=== PATIENT | male | born 1950 | race Caucasian/White ===

== ENCOUNTER 2018-02-18 12:55 | Emergency (ER) | payer MEDICARE, OTHER ==
[2018-02-18] MEDS ORDERED: ASPIRIN 81 MG TABLET, CHEWABLE PO ONE (13:43)
[2018-02-18] MEDS ORDERED: NORMAL SALINE 1000 ML 1,000 ML IV PRN (13:44)
--- NOTE | 2018-02-18 13:45 | ER Document Report ---
ED Medical Screen (RME) - General Chief Complaint: Weakness Stated Complaint: DIZZY Time Seen by Provider: 02/18/18 13:37 Notes: 68 years old male with a history of stroke presents today because of feeling lethargic for the last 2-3 days last 2 hours he was sitting in a place and not doing anything chest not feeling good. Denied any headache focal weakness other than the old stroke. Denies any chest pain shortness of breath cough. Denies any other constitutional symptoms. I have greeted and performed a rapid initial assessment of this patient. A comprehensive ED assessment and evaluation of the patient, analysis of test results and completion of the medical decision making process will be conducted by additional ED providers. PHYSICAL EXAMINATION: GENERAL: Well-appearing, well-nourished and in no acute distress. HEAD: Atraumatic, normocephalic. EYES: Pupils equal round extraocular movements intact, conjunctiva are normal. ENT: Nares patent NECK: Normal range of motion LUNGS: No respiratory distress Musculoskeletal: Normal range of motion NEUROLOGICAL: Normal speech, normal gait. PSYCH: Normal mood, normal affect. SKIN: Warm, Dry, normal turgor, no rashes or lesions noted. Past Medical History - Social History Chew tobacco use (# tins/day): No Frequency of alcohol use: None Drug Abuse: None - Past Medical History Cardiac Medical History: Reports: Hx Hypertension Pulmonary Medical History: Reports: Hx COPD Renal/ Medical History: Denies: Hx Peritoneal Dialysis Physical Exam - Vital signs Vitals: Temp Pulse Resp BP Pulse Ox 97.9 F 58 L 18 135/61 H 95 02/18/18 13:04 02/18/18 13:04 02/18/18 13:04 02/18/18 13:04 02/18/18 13:04 Course - Vital Signs Vital signs: Temp Pulse Resp BP Pulse Ox 97.9 F 58 L 18 135/61 H 95 02/18/18 13:04 02/18/18 13:04 02/18/18 13:04 02/18/18 13:04 02/18/18 13:04
[2018-02-18 14:38] LABS: ABSOLUTE EOSINOPHILS # (AUTO) 0.5 10^3/uL (0.0-0.6); ABSOLUTE LYMPHOCYTES (AUTO) 2.4 10^3/uL (0.5-4.7); ABSOLUTE MONOCYTES (AUTO) 0.6 10^3/uL (0.1-1.4); ABSOLUTE NEUT (AUTO) 4.9 10^3/uL (1.7-8.2); BASOPHILS % (AUTO) 0.4 % (0-2); EOSINOPHILS % (AUTO) 6.5 % (0-6); HEMATOCRIT 51.8 % (37.9-51.0); HEMOGLOBIN 17.5 g/dL (13.5-17.0); LYMPHOCYTES % (AUTO) 28.4 % (13-45); MEAN CORPUSCULAR HEMOGLOBIN 29.3 pg (27.0-33.4); MEAN CORPUSCULAR HGB CONC 33.8 g/dL (32.0-36.0); MEAN CORPUSCULAR VOLUME 87 fl (80-97); MONOCYTES % (AUTO) 6.6 % (3-13); PLATELET COUNT 238 10^3/uL (150-450); RED BLOOD COUNT 5.97 10^6/uL (4.35-5.55); RED CELL DISTRIBUTION WIDTH 13.4 % (11.5-14.0); SEGMENTED NEUTROPHILS % (AUTO) 58.1 % (42-78); TOTAL CELLS COUNTED % (AUTO) 100 %; WHITE BLOOD COUNT 8.4 10^3/uL (4.0-10.5)
--- NOTE | 2018-02-18 14:51 | RADIOLOGY REPORT (SQ) ---
EXAM DESCRIPTION: CHEST SINGLE VIEW COMPLETED DATE/TIME: 02/18/2018 2:38 pm REASON FOR STUDY: Shortness of breath COMPARISON: None. EXAM PARAMETERS: NUMBER OF VIEWS: One view. TECHNIQUE: Single frontal radiographic view of the chest acquired. RADIATION DOSE: NA LIMITATIONS: None. FINDINGS: LUNGS AND PLEURA: No opacities, masses or pneumothorax. No pleural effusion. MEDIASTINUM AND HILAR STRUCTURES: No masses. Contour normal. HEART AND VASCULAR STRUCTURES: Heart normal in size. Normal vasculature. BONES: No acute findings. HARDWARE: None in the chest. OTHER: No other significant finding. IMPRESSION: NO ACUTE RADIOGRAPHIC FINDING IN THE CHEST. TECHNICAL DOCUMENTATION: JOB ID: [id number] [email or web address]- All Rights Reserved Reading location - IP/workstation name: [email or web address]
[2018-02-18 15:01] LABS: ALANINE AMINOTRANSFERASE 38 U/L (21-72); ALBUMIN 4.5 g/dL (3.5-5.0); ALKALINE PHOSPHATASE 184 U/L (38-126); ANION GAP 14 (5-19); ASPARTATE AMINO TRANSFERASE 44 U/L (17-59); BILIRUBIN,DIRECT 0.4 mg/dL (0.0-0.4); BILIRUBIN,TOTAL 0.8 mg/dL (0.2-1.3); BLOOD UREA NITROGEN 20 mg/dL (7-20); CALCIUM 9.5 mg/dL (8.4-10.2); CARBON DIOXIDE 31 mmol/L (22-30); CHLORIDE 103 mmol/L (98-107); CREATINE KINASE 64 U/L (55-170); GLUCOSE 94 mg/dL (75-110)
[2018-02-18] MEDS ORDERED: IPRATROPIUM/ALBUTEROL 0.5-2.5 MG/3 ML AMPUL NEB ONE (15:02)
[2018-02-18 15:18] LABS: CREATINE KINASE MB 1.16 ng/mL (<4.55); TROPONIN I 0.014 ng/mL
[2018-02-18 15:28] LABS: INTERNATIONAL RATION (INR) 0.98; PROTHROMBIN TIME 13.5 SEC (11.4-15.4)
[2018-02-18 15:29] LABS: PARTIAL THROMBOPLASTIN TIME 30.6 SEC (23.5-35.8)
--- NOTE | 2018-02-18 15:31 | ER Document Report ---
ED General - General Chief Complaint: Weakness Stated Complaint: DIZZY Time Seen by Provider: 02/18/18 13:37 Mode of Arrival: Ambulatory Information source: Patient, Relative, [facility] Records Notes: 68-year-old male with hypertension, COPD, previous CVA (with left sided resiual weakness) presents with complaint of fatigue. Per the sister and who are at the bedside they state the patient has been sleeping for the last 2 days. Patient states that he feels "lethargic". He denies headache, visual changes, nausea, vomiting, lightheadedness, weakness, chest pain, shortness of breath, abdominal pain, back pain, dysuria, hematuria. Family reports that the patient has not been eating and drinking normally. He has not been taking his medications. Patient has no physical complaints at this time. He states he believes he does not "feel good in my head". He denies confusion, slurred speech, recent falls, changes in medication, recent hospitalizations. - HPI Onset: Other Quality of pain: No pain Severity: None Associated symptoms: Other - Fatigue Exacerbated by: Denies Relieved by: Denies Similar symptoms previously: No Recently seen / treated by doctor: No - Related Data Allergies/Adverse Reactions: No Known Allergies Allergy (Unverified 02/18/18 15:11) Past Medical History - General Information source: Patient, [facility] Records - Social History Smoking Status: Current Every Day Smoker Chew tobacco use (# tins/day): No Frequency of alcohol use: None Drug Abuse: None Lives with: Spouse/Significant other Family History: Reviewed & Not Pertinent Patient has suicidal ideation: No Patient has homicidal ideation: No - Past Medical History Cardiac Medical History: Reports: Hx Hypertension Pulmonary Medical History: Reports: Hx COPD Renal/ Medical History: Denies: Hx Peritoneal Dialysis Review of Systems - Review of Systems Notes: REVIEW OF SYSTEMS: CONSTITUTIONAL : Denies fever, chills, or sweats. Denies recent illness. Denies weight loss, recent hospitalizations. EENT: Denies visual changes, eye pain. Denies nasal or sinus congestion or discharge. Denies sore throat, oral lesions, difficulty swallowing. CARDIOVASCULAR: Denies chest pain. Denies palpitations or racing or irregular heart beat. Denies lower extremity edema. RESPIRATORY: Denies cough, cold, or chest congestion. Denies shortness of breath, difficulty breathing, or wheezing. GASTROINTESTINAL: Denies abdominal pain or distention. Denies nausea, vomiting , or diarrhea. Denies blood in vomitus, stools, or per rectum. Denies black, tarry stools. Denies constipation. GENITOURINARY: Denies difficulty urinating, painful urination, burning, frequency, blood in urine, or vaginal discharge. MUSCULOSKELETAL: Denies back or neck pain or stiffness. Denies joint pain or swelling. SKIN: Denies rash, lesions or sores. HEMATOLOGIC : Denies easy bruising or bleeding. LYMPHATIC: Denies swollen, enlarged glands. NEUROLOGICAL: Denies confusion or altered mental status. Denies passing out or loss of consciousness. Denies dizziness or lightheadedness. Denies headache. Denies weakness or paralysis or loss of use of either side. Denies problems with gait or speech. Denies sensory loss, numbness, or tingling. Denies seizures. PSYCHIATRIC: Denies anxiety or stress. Denies depression, suicidal ideation, or homicidal ideation. Physical Exam - Vital signs Vitals: Temp Pulse Resp BP Pulse Ox 97.9 F 58 L 18 135/61 H 95 02/18/18 13:04 02/18/18 13:04 02/18/18 13:04 02/18/18 13:04 02/18/18 13:04 Interpretation: Hypertensive, Bradycardic. No: Hypoxic - Notes Notes: PHYSICAL EXAMINATION: GENERAL: Well-appearing, well-nourished and in no acute distress. HEAD: Atraumatic, normocephalic. EYES: Pupils equal round and reactive to light, extraocular movements intact, sclera anicteric, conjunctiva are normal. ENT: Nares patent, oropharynx clear without exudates. Dry mucous membranes. NECK: Normal range of motion, supple without lymphadenopathy LUNGS: Breath sounds clear to auscultation bilaterally and equal. No wheezes rales or rhonchi. HEART: Regular rate and rhythm without murmurs ABDOMEN: Soft, nontender, nondistended abdomen. No guarding, no rebound. No masses appreciated. Musculoskeletal: Normal range of motion, no pitting or edema. No cyanosis. NEUROLOGICAL: Cranial nerves grossly intact. Normal speech, normal gait. Normal sensory, motor exams. 3/5 left sided coastal tug mate strength, dorsiflexion. PSYCH: Normal mood, normal affect. SKIN: Warm, Dry, normal turgor, no rashes or lesions noted. Course - Re-evaluation Re-evalutation: Laboratory 02/18/18 02/18/18 02/18/18 14:13 14:13 14:13 WBC 8.4 RBC 5.97 H Hgb 17.5 H Hct 51.8 H MCV 87 MCH 29.3 MCHC 33.8 RDW 13.4 Plt Count 238 Seg Neutrophils % 58.1 Lymphocytes % 28.4 Monocytes % 6.6 Eosinophils % 6.5 H Basophils % 0.4 Absolute Neutrophils 4.9 Absolute Lymphocytes 2.4 Absolute Monocytes 0.6 Absolute Eosinophils 0.5 Absolute Basophils 0.0 PT INR APTT VBG pH VBG pCO2 VBG HCO3 VBG Base Excess Sodium 148.0 H Potassium 4.0 Chloride 103 Carbon Dioxide 31 H Anion Gap 14 BUN 20 Creatinine 1.24 Est GFR ( Amer) > 60 Est GFR (Non-Af Amer) 58 L Glucose 94 Calcium 9.5 Total Bilirubin 0.8 Direct Bilirubin 0.4 Neonat Total Bilirubin Not Reportable Neonat Direct Bilirubin Not Reportable Neonat Indirect Bili Not Reportable AST 44 ALT 38 Alkaline Phosphatase 184 H Creatine Kinase 64 CK-MB (CK-2) 1.16 Troponin I 0.014 Total Protein 8.0 Albumin 4.5 Urine Color Urine Appearance Urine pH Ur Specific [place] Urine Protein Urine Glucose (UA) Urine Ketones Urine Blood Urine Nitrite Urine Bilirubin Urine Urobilinogen Ur Leukocyte Esterase Urine WBC (Auto) Urine RBC (Auto) Squamous Epi Cells Auto Urine Mucus (Auto) Urine Ascorbic Acid 02/18/18 02/18/18 02/18/18 14:13 17:51 19:34 WBC RBC Hgb Hct MCV MCH MCHC RDW Plt Count Seg Neutrophils % Lymphocytes % Monocytes % Eosinophils % Basophils % Absolute Neutrophils Absolute Lymphocytes Absolute Monocytes Absolute Eosinophils Absolute Basophils PT 13.5 INR 0.98 APTT 30.6 VBG pH 7.41 VBG pCO2 44.5 VBG HCO3 27.4 VBG Base Excess 2.2 Sodium Potassium Chloride Carbon Dioxide Anion Gap BUN Creatinine Est GFR ( Amer) Est GFR (Non-Af Amer) Glucose Calcium Total Bilirubin Direct Bilirubin Neonat Total Bilirubin Neonat Direct Bilirubin Neonat Indirect Bili AST ALT Alkaline Phosphatase Creatine Kinase CK-MB (CK-2) Troponin I 0.018 Total Protein Albumin Urine Color Urine Appearance Urine pH Ur Specific [place] Urine Protein Urine Glucose (UA) Urine Ketones Urine Blood Urine Nitrite Urine Bilirubin Urine Urobilinogen Ur Leukocyte Esterase Urine WBC (Auto) Urine RBC (Auto) Squamous Epi Cells Auto Urine Mucus (Auto) Urine Ascorbic Acid 02/18/18 20:46 WBC RBC Hgb Hct MCV MCH MCHC RDW Plt Count Seg Neutrophils % Lymphocytes % Monocytes % Eosinophils % Basophils % Absolute Neutrophils Absolute Lymphocytes Absolute Monocytes Absolute Eosinophils Absolute Basophils PT INR APTT VBG pH VBG pCO2 VBG HCO3 VBG Base Excess Sodium Potassium Chloride Carbon Dioxide Anion Gap BUN Creatinine Est GFR ( Amer) Est GFR (Non-Af Amer) Glucose Calcium Total Bilirubin Direct Bilirubin Neonat Total Bilirubin Neonat Direct Bilirubin Neonat Indirect Bili AST ALT Alkaline Phosphatase Creatine Kinase CK-MB (CK-2) Troponin I Total Protein Albumin Urine Color YELLOW Urine Appearance CLEAR Urine pH 6.0 Ur Specific [place] 1.015 Urine Protein NEGATIVE Urine Glucose (UA) NEGATIVE Urine Ketones NEGATIVE Urine Blood SMALL H Urine Nitrite NEGATIVE Urine Bilirubin NEGATIVE Urine Urobilinogen 4.0 H Ur Leukocyte Esterase NEGATIVE Urine WBC (Auto) 0 Urine RBC (Auto) 2 Squamous Epi Cells Auto <1 Urine Mucus (Auto) RARE Urine Ascorbic Acid NEGATIVE Chest X-Ray 02/18/18 13:43 IMPRESSION: NO ACUTE RADIOGRAPHIC FINDING IN THE CHEST. Head CT 02/18/18 15:27 IMPRESSION: MILD CHRONIC CHANGES OF ATROPHY AND MICROVASCULAR ISCHEMIA. 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 NO ACUTE PROCESS. EVIDENCE OF ACUTE STROKE: NO. 68-year-old male with hypertension, COPD, previous CVA (with left sided resiual weakness) presents with complaint of fatigue. Per the sister and who are at the bedside they state the patient has been sleeping for the last 2 days. Patient states that he feels "lethargic". He denies headache, visual changes, nausea, vomiting, lightheadedness, weakness, chest pain, shortness of breath, abdominal pain, back pain, dysuria, hematuria. Family reports that the patient has not been eating and drinking normally. He has not been taking his medications. Patient has no physical complaints at this time. He states he believes he does not "feel good in my head". He denies confusion, slurred speech, recent falls, changes in medication, recent hospitalizations. Patient was seen by myself upon arrival. Vital signs were reviewed. Patient is afebrile , normotensive and not hypoxic. Patient's heart rate is 58. Patient does not appear toxic he does appear mildly dehydrated. They are in no acute distress. Previous medical records and nursing notes reviewed. Significant findings include an exam that is significant for left sided arm and leg weakness which patient reports to be from his previous CVA and denies worsening of weakness. Patient also appears mildly dehydrated with dry mucous membranes and tenting skin. CBC is without leukocytosis or anemia. CMP is significant for elevated sodium likely secondary to dehydration. Cardiac enzymes were within normal limits 2. Urinalysis is without evidence of infection. Chest x-ray showed no acute process. CT of the head does show an old MCA infarct but no acute process. 02/18/18 18:35 On reevaluation patient is still symptom-free. I did review his test results and imaging results with him. We are still awaiting a urine. is at the bedside and states that he looks much better after the fluids. 02/18/18 21:41 Patient reevaluated and continues to be symptom free. He has no complaints. Family at the bedside states that he appears much better after fluids. 02/18/18 21:41 Patient provided the opportunity to ask questions, and express concerns. Discharge instructions discussed. Patient is agreeable with discharge home. Return indications explained and discussed with the patient who displays understanding. Patient encouraged to return to the emergency department immediately with any concerns. 02/19/18 01:35 02/19/18 01:35 - Vital Signs Vital signs: Temp Pulse Resp BP Pulse Ox 98.5 F 58 L 16 141/68 H 96 02/18/18 21:45 02/18/18 13:04 02/18/18 21:31 02/18/18 21:31 02/18/18 21:31 - Laboratory Result Diagrams: 02/18/18 14:13 02/18/18 14:13 Laboratory results interpreted by me: 02/18/18 02/18/18 02/18/18 14:13 14:13 20:46 RBC 5.97 H Hgb 17.5 H Hct 51.8 H Eosinophils % 6.5 H Sodium 148.0 H Carbon Dioxide 31 H Est GFR (Non-Af Amer) 58 L Alkaline Phosphatase 184 H Urine Blood SMALL H Urine Urobilinogen 4.0 H - Diagnostic Test Radiology reviewed: Image reviewed, Reports reviewed - EKG Interpretation by Me EKG shows normal: abnormal: Sinus rhythm Rate: Bradycardia Rhythm: NSR When compared to previous EKG there are: Previous EKG unavailable Discharge - Discharge Clinical Impression: Dehydration Fatigue Qualifiers: Fatigue type: unspecified Qualified Code(s): R53.83 - Other fatigue Disposition: HOME, SELF-CARE Instructions: Dehydration ([facility]), Fatigue ([facility]) Additional Instructions: Follow up with your physician tomorrow for further care or return to the ED IMMEDIATELY if symptoms worsen or new concerns occur. If you cannot afford to follow up with your primary care physician a list of low cost clinics have been provided at the end of your discharge papers as well. Forms: Elevated Blood Pressure, Smoking Cessation Education
[2018-02-18] MEDS ORDERED: NORMAL SALINE 1000 ML 1,000 ML IV ONE (15:41)
--- NOTE | 2018-02-18 16:24 | RADIOLOGY REPORT (SQ) ---
EXAM DESCRIPTION: CT HEAD WITHOUT COMPLETED DATE/TIME: 02/18/2018 4:14 pm REASON FOR STUDY: confused COMPARISON: None. TECHNIQUE: Axial images acquired through the brain without intravenous contrast. Images reviewed wi th bone, brain and subdural windows. Additional sagittal and coronal reconstructions were generated. Images stored on PACS. All CT scanners at this facility use dose modulation, iterative reconstruction, and/or weight based d osing when appropriate to reduce radiation dose to as low as reasonably achievable (ALARA). [facility]: Dose Right [facility]: CareDose [facility]: Dose Right [facility]: Teradose 4D [facility]: Smart [employer] RADIATION DOSE: CT Rad equipment meets quality standard of care and radiation dose reduction techniq ues were employed. CTDIvol: 53.2 mGy. DLP: 991 mGy-cm. mGy. LIMITATIONS: None. FINDINGS: VENTRICLES: Prominent. CEREBRUM: No masses. No hemorrhage. No midline shift. Areas of low density in the white matter mos t likely due to chronic micro-vascular ischemic change. Old right middle cerebral artery infarct. N o evidence for acute infarction. CEREBELLUM: No masses. No hemorrhage. No alteration of density. No evidence for acute infarction. EXTRAAXIAL SPACES: Mild age-related involutional change. No fluid collections. No masses. ORBITS AND GLOBE: No intra- or extraconal masses. Normal contour of globe without masses. CALVARIUM: No fracture. PARANASAL SINUSES: No fluid or mucosal thickening. SOFT TISSUES: No mass or hematoma. OTHER: No other significant finding. IMPRESSION: MILD CHRONIC CHANGES OF ATROPHY AND MICROVASCULAR ISCHEMIA. OLD RIGHT MIDDLE CEREBRAL A RTERY INFARCT. NO ACUTE PROCESS. EVIDENCE OF ACUTE STROKE: NO. TECHNICAL DOCUMENTATION: JOB ID: [id number] Quality ID # [id number]: Final reports with documentation of one or more dose reduction techniques (e.g., Au tomated exposure control, adjustment of the mA and/or kV according to patient size, use of iterative reconstruction technique) 2010 [employer]- All Rights Reserved Reading location - IP/workstation name: [email or web address]
[2018-02-18 18:03] LABS: VENOUS BLOOD BASE EXCESS 2.2 mmol/L; VENOUS BLOOD HCO3 27.4 mmol/L (20-32); VENOUS BLOOD PCO2 44.5 mmHg (35-63); VENOUS BLOOD PH 7.41 (7.30-7.42)
[2018-02-18] MEDS ORDERED: NORMAL SALINE 500 ML IV ONE (18:36)
[2018-02-18 21:20] LABS: APPEARANCE,URINE CLEAR; BILIRUBIN,URINE NEGATIVE (NEGATIVE); COLOR,URINE YELLOW; GLUCOSE, URINE NEGATIVE (NEGATIVE); KETONES,URINE NEGATIVE (NEGATIVE); LEUKOCYTE ESTERASE,URINE NEGATIVE (NEGATIVE); NITRITE,URINE NEGATIVE (NEGATIVE); PROTEIN,URINE NEGATIVE (NEGATIVE); URINE SPECIFIC GRAVITY 1.015
[2018-02-18 21:51] VITALS: BP 141/68
--- NOTE | 2018-02-18 23:39 | EKG REPORT ---
SEVERITY:- ABNORMAL ECG - SINUS BRADYCARDIA : Confirmed by: Clyde Murray 18-Feb-2018 23:38:46
== END 2018-02-18 21:45 | disposition home or self-care (01) ==
LOC: ER 12:55
DX: E86.0 Dehydration (principal); R53.83 Other fatigue; R00.1 Bradycardia, unspecified; I10 Essential (primary) hypertension; J44.9 Chronic obstructive pulmonary disease, unspecified; I69.354 Hemiplegia and hemiparesis following cerebral infarction affecting left non-dominant side; F17.200 Nicotine dependence, unspecified, uncomplicated; Z91.14 Patient's other noncompliance with medication regimen
CPT/HCPCS: 93005; 94640; 99285; 96360; 96361; 51701; 36415; 82553; 82550; 85025; 85610; 85730; 80053; 81001; 84484; 82803; 71045; 70450; 93010; A9270 ×2; J7030; J7040; J7620

== ENCOUNTER 2019-02-24 15:19 | Emergency (ER) | payer OTHER, MEDICARE ==
--- NOTE | 2019-02-24 16:15 | ER Document Report ---
ED Medical Screen (RME) - General Chief Complaint: Pedal Edema Stated Complaint: FEET SWELLING Time Seen by Provider: 02/24/19 16:10 Mode of Arrival: Wheelchair Information source: Patient Notes: Patient presents to the emergency department sent over from his physician's office for possible heart failure. Reports chest pain difficulty breathing for the past week. Reports peripheral edema. Patient also reports history of COPD. No complaints of fever vomiting diarrhea. Patient is a smoker. I have greeted and performed a rapid initial assessment of this patient. A comprehensive ED assessment and evaluation of the patient, analysis of test results and completion of the medical decision making process will be conducted by additional ED providers. Dictation of this chart was performed using voice recognition software; therefore, there may be some unintended grammatical errors. - Related Data Allergies/Adverse Reactions: No Known Allergies Allergy (Verified 02/24/19 15:52) Past Medical History - Past Medical History Cardiac Medical History: Reports: Hx Hypertension Pulmonary Medical History: Reports: Hx COPD Renal/ Medical History: Denies: Hx Peritoneal Dialysis Physical Exam - Vital signs Vitals: Temp Pulse Resp BP Pulse Ox 98.2 F 97 28 H 172/76 H 90 L 02/24/19 15:27 02/24/19 15:27 02/24/19 15:27 02/24/19 15:27 02/24/19 15:27 Course - Vital Signs Vital signs: Temp Pulse Resp BP Pulse Ox 98.2 F 97 28 H 172/76 H 90 L 02/24/19 15:27 02/24/19 15:27 02/24/19 15:27 02/24/19 15:27 02/24/19 15:27
--- NOTE | 2019-02-24 16:51 | RADIOLOGY REPORT (SQ) ---
EXAM DESCRIPTION: CHEST 2 VIEWS COMPLETED DATE/TIME: 02/24/2019 4:38 pm REASON FOR STUDY: SOB, CP COMPARISON: 02/18/2018. EXAM PARAMETERS: NUMBER OF VIEWS: two views TECHNIQUE: Digital Frontal and Lateral radiographic views of the chest acquired. RADIATION DOSE: NA LIMITATIONS: none FINDINGS: LUNGS AND PLEURA: No opacities, masses or pneumothorax. No pleural effusion. MEDIASTINUM AND HILAR STRUCTURES: No masses or contour abnormalities. HEART AND VASCULAR STRUCTURES: Heart normal size. No evidence for failure. BONES: No acute findings. Degenerative changes in the spine. HARDWARE: None in the chest. OTHER: No other significant finding. IMPRESSION: NO ACUTE RADIOGRAPHIC FINDING IN THE CHEST. TECHNICAL DOCUMENTATION: JOB ID: [id number] [email or web address]- All Rights Reserved Reading location - IP/workstation name: [email or web address]
--- NOTE | 2019-02-24 16:54 | ER Document Report ---
ED General - General Chief Complaint: Pedal Edema Stated Complaint: FEET SWELLING Time Seen by Provider: 02/24/19 16:10 Primary Care Provider: EVERTON RUBIN MD [ACTIVE STAFF] - Follow up in 3-5 days (or your primary care. ) Mode of Arrival: Wheelchair Notes: Patient is a 69-year-old male with history of COPD that presents to the emergency department for chief complaint of shortness of breath and leg swelling. Patient states that he is a more short of breath over the past few days, his primary care advised that he come to the emergency department today because they are worried he may be having heart failure because he has had some leg swelling. He states he has not been as compliant as he should be with his breathing treatments at home. He reports that the leg swelling has been more noticable over the past several weeks. Shortness of breath seems to be worse with exertion, but denies orthopnea or PND. Denies any associated chest pain, nausea, vomiting, diarrhea, or abdominal pain. He has had a productive cough with yellow sputum as well. He does not wear home oxygen. Past Medical History: COPD, HTN Past Surgical History: skin cyst removal Social History: Admits to smoking cigarettes, denies ETOH or drug use. Family History: Reviewed and noncontributory for presenting illness Allergies: Reviewed, see documented allergy list. REVIEW OF SYSTEMS: Other than noted above, the 12 point review of systems was reviewed with the patient and were negative, all pertinent findings are included in the HPI. PHYSICAL EXAMINATION: Vital signs reviewed, nursing noted reviewed. GENERAL: Elderly male, no acute distress at this time. HEAD: Atraumatic, normocephalic. EYES: Eyes appear normal, extraocular movements intact, sclera anicteric, conjunctiva are normal. ENT: nares patent, oropharynx clear without exudates. Moist mucous membranes. NECK: Normal range of motion, supple without lymphadenopathy LUNGS: Bilateral expiratory wheezing noted, diminished lung sounds overall, no acute respiratory distress. HEART: Regular rate and rhythm without murmurs ABDOMEN: Soft, nontender, normoactive bowel sounds. No rebound, guarding, or rigidity. No masses appreciated. EXTREMITIES: Nontender, good range of motion, bilateral 1-2+ pitting edema to the ankles, no erythema. NEUROLOGICAL: No focal neurological deficits. Moves all extremities spontaneously Motor and sensory grossly intact on exam. PSYCH: Normal mood, normal affect. SKIN: Warm, Dry, normal turgor, no rashes or lesions noted on exposed skin - Related Data Allergies/Adverse Reactions: No Known Allergies Allergy (Verified 02/24/19 15:52) Past Medical History - General Information source: Patient - Social History Smoking Status: Current Every Day Smoker Family History: Reviewed & Not Pertinent Patient has suicidal ideation: No Patient has homicidal ideation: No - Past Medical History Cardiac Medical History: Reports: Hx Hypertension Pulmonary Medical History: Reports: Hx COPD Renal/ Medical History: Denies: Hx Peritoneal Dialysis Physical Exam - Vital signs Vitals: Temp Pulse Resp BP Pulse Ox 98.2 F 97 28 H 172/76 H 90 L 02/24/19 15:27 02/24/19 15:27 02/24/19 15:27 02/24/19 15:27 02/24/19 15:27 Course - Re-evaluation Re-evalutation: Patient seen and examined vital signs reviewed. Laboratory data and/or imaging were ordered as appropriate for the patient's presenting symptoms and complaint, with consideration of any critical or life threatening conditions that may be associated with their obtained history and exam as noted above. Patient was treated with duo neb breathing treatments, and IV solu medrol Results were reviewed when available and demonstrated negative chest xray, and bloodwork was essentially unremarkable. The patient was re-evaluated and was improved and wheezing nearly resolved, no acute respiratory distress, and not hypoxic on room air, was able to produce yellow thick sputum. Evaluation was most consistent with acute exacerbation of copd, will discharge home on mucinex, prednisone, and azithromycin for productive cough. Results were discussed with the patient at this point, after careful consideration I feel that that patient can be discharged from the emergency department, the patient was educated treatments and reasons to return to the emergency department based on their presumed diagnosis as noted above, they were advised to followup with a primary care physician in 2-3 days. Patient was agreeable to plan of care. *Note is created using voice recognition software and may contain spelling, syntax or grammatical errors. Laboratory 02/24/19 02/24/19 02/24/19 16:40 16:40 16:40 WBC 8.1 RBC 5.11 Hgb 15.2 Hct 44.1 MCV 86 MCH 29.7 MCHC 34.5 RDW 13.5 Plt Count 186 Seg Neutrophils % 67.2 Lymphocytes % 18.6 Monocytes % 10.5 Eosinophils % 3.0 Basophils % 0.7 Absolute Neutrophils 5.5 Absolute Lymphocytes 1.5 Absolute Monocytes 0.9 Absolute Eosinophils 0.2 Absolute Basophils 0.1 Sodium 143.4 Potassium 3.9 Chloride 105 Carbon Dioxide 29 Anion Gap 9 BUN 18 Creatinine 1.33 H Est GFR ( Amer) > 60 Est GFR (Non-Af Amer) 53 L Glucose 101 Calcium 8.9 Total Bilirubin 0.6 Direct Bilirubin 0.3 Neonat Total Bilirubin Not Reportable Neonat Direct Bilirubin Not Reportable Neonat Indirect Bili Not Reportable AST 26 ALT 24 Alkaline Phosphatase 109 Creatine Kinase 316 H Troponin I 0.017 NT-Pro-B Natriuret Pep 495 Total Protein 6.9 Albumin 4.1 Urine Color Urine Appearance Urine pH Ur Specific Desha Urine Protein Urine Glucose (UA) Urine Ketones Urine Blood Urine Nitrite Urine Bilirubin Urine Urobilinogen Ur Leukocyte Esterase Urine WBC (Auto) Urine RBC (Auto) Squamous Epi Cells Auto Urine Mucus (Auto) Urine Ascorbic Acid 02/24/19 19:08 WBC RBC Hgb Hct MCV MCH MCHC RDW Plt Count Seg Neutrophils % Lymphocytes % Monocytes % Eosinophils % Basophils % Absolute Neutrophils Absolute Lymphocytes Absolute Monocytes Absolute Eosinophils Absolute Basophils Sodium Potassium Chloride Carbon Dioxide Anion Gap BUN Creatinine Est GFR ( Amer) Est GFR (Non-Af Amer) Glucose Calcium Total Bilirubin Direct Bilirubin Neonat Total Bilirubin Neonat Direct Bilirubin Neonat Indirect Bili AST ALT Alkaline Phosphatase Creatine Kinase Troponin I NT-Pro-B Natriuret Pep Total Protein Albumin Urine Color YELLOW Urine Appearance CLEAR Urine pH 5.0 Ur Specific Desha 1.019 Urine Protein NEGATIVE Urine Glucose (UA) NEGATIVE Urine Ketones NEGATIVE Urine Blood SMALL H Urine Nitrite NEGATIVE Urine Bilirubin NEGATIVE Urine Urobilinogen 2.0 H Ur Leukocyte Esterase NEGATIVE Urine WBC (Auto) 1 Urine RBC (Auto) 4 Squamous Epi Cells Auto <1 Urine Mucus (Auto) RARE Urine Ascorbic Acid NEGATIVE Chest X-Ray 02/24/19 16:13 IMPRESSION: NO ACUTE RADIOGRAPHIC FINDING IN THE CHEST. - Vital Signs Vital signs: Temp Pulse Resp BP Pulse Ox 98.2 F 97 19 161/79 H 92 02/24/19 15:27 02/24/19 15:27 02/24/19 20:01 02/24/19 20:01 02/24/19 20:01 - Laboratory Result Diagrams: 02/24/19 16:40 02/24/19 16:40 Laboratory results interpreted by me: 02/24/19 02/24/19 16:40 19:08 Creatinine 1.33 H Est GFR (Non-Af Amer) 53 L Creatine Kinase 316 H Urine Blood SMALL H Urine Urobilinogen 2.0 H - EKG Interpretation by Me Additional EKG results interpreted by me: EKG demonstrates sinus rhythm with a ventricular rate of 79 bpm, normal axis, normal intervals, no evidence of acute ischemia in this EKG, compared to prior EKG from 02/18/2018, without significant change. Discharge - Discharge Clinical Impression: Acute exacerbation of chronic obstructive pulmonary disease (COPD), Productive cough Condition: Stable Disposition: HOME, SELF-CARE Instructions: Chronic Obstructive Lung Disease ([facility]) Additional Instructions: Please use your albuterol inhaler, 2 puffs 4 times daily for the next 5 days, continue using your other inhaler as well, call for an appointment to follow-up with your primary care physician, and take all medications as directed and complete the entire course of steroids. Prescriptions: RX: Azithromycin [Zithromax 250 mg Tablet] 250 mg PO ASDIR #6 tablet Guaifenesin [Mucinex] 1,200 mg PO BID #30 tab.er.12h RX: Prednisone [Deltasone 20 mg Tablet] 3 tab PO DAILY 5 Days #15 tablet Referrals: EVERTON RUBIN MD [ACTIVE STAFF] - Follow up in 3-5 days (or your primary care. )
[2019-02-24 17:05] LABS: ABSOLUTE BASOPHILS # (AUTO) 0.1 10^3/uL (0.0-0.2); ABSOLUTE EOSINOPHILS # (AUTO) 0.2 10^3/uL (0.0-0.6); ABSOLUTE LYMPHOCYTES (AUTO) 1.5 10^3/uL (0.5-4.7); ABSOLUTE MONOCYTES (AUTO) 0.9 10^3/uL (0.1-1.4); ABSOLUTE NEUT (AUTO) 5.5 10^3/uL (1.7-8.2); BASOPHILS % (AUTO) 0.7 % (0-2); HEMATOCRIT 44.1 % (37.9-51.0); HEMOGLOBIN 15.2 g/dL (13.5-17.0); LYMPHOCYTES % (AUTO) 18.6 % (13-45); MEAN CORPUSCULAR HEMOGLOBIN 29.7 pg (27.0-33.4); MEAN CORPUSCULAR HGB CONC 34.5 g/dL (32.0-36.0); MEAN CORPUSCULAR VOLUME 86 fl (80-97); MONOCYTES % (AUTO) 10.5 % (3-13); PLATELET COUNT 186 10^3/uL (150-450); RED BLOOD COUNT 5.11 10^6/uL (4.35-5.55); RED CELL DISTRIBUTION WIDTH 13.5 % (11.5-14.0); SEGMENTED NEUTROPHILS % (AUTO) 67.2 % (42-78); TOTAL CELLS COUNTED % (AUTO) 100 %; WHITE BLOOD COUNT 8.1 10^3/uL (4.0-10.5)
[2019-02-24 17:18] LABS: ALANINE AMINOTRANSFERASE 24 U/L (21-72); ALBUMIN 4.1 g/dL (3.5-5.0); ALKALINE PHOSPHATASE 109 U/L (38-126); ANION GAP 9 (5-19); ASPARTATE AMINO TRANSFERASE 26 U/L (17-59); BILIRUBIN,DIRECT 0.3 mg/dL (0.0-0.4); BILIRUBIN,TOTAL 0.6 mg/dL (0.2-1.3); BLOOD UREA NITROGEN 18 mg/dL (7-20); CALCIUM 8.9 mg/dL (8.4-10.2); CARBON DIOXIDE 29 mmol/L (22-30); CHLORIDE 105 mmol/L (98-107); CREATINE KINASE 316 U/L (55-170); GLUCOSE 101 mg/dL (75-110); POTASSIUM 3.9 mmol/L (3.6-5.0); SODIUM 143.4 mmol/L (137-145); TOTAL PROTEIN 6.9 g/dL (6.3-8.2)
[2019-02-24 17:31] LABS: TROPONIN I 0.017 ng/mL
[2019-02-24] MEDS ORDERED: METHYLPREDNISOLONE INJ 125 MG/2 ML SDV IV ONE (17:39)
[2019-02-24] MEDS ORDERED: FUROSEMIDE INJ/PF 20 MG/2 ML SDV IV ONE (17:39)
[2019-02-24] MEDS ORDERED: IPRATROPIUM/ALBUTEROL 0.5-2.5 MG/3 ML AMPUL NEB ONE (17:39)
--- NOTE | 2019-02-24 19:00 | EKG REPORT ---
SEVERITY:- BORDERLINE ECG - SINUS RHYTHM BORDERLINE INFERIOR Q WAVES : Confirmed by: Reinaldo Gant MD 24-Feb-2019 19:00:09
[2019-02-24 19:39] LABS: APPEARANCE,URINE CLEAR; BILIRUBIN,URINE NEGATIVE (NEGATIVE); COLOR,URINE YELLOW; GLUCOSE, URINE NEGATIVE (NEGATIVE); KETONES,URINE NEGATIVE (NEGATIVE); LEUKOCYTE ESTERASE,URINE NEGATIVE (NEGATIVE); NITRITE,URINE NEGATIVE (NEGATIVE); PROTEIN,URINE NEGATIVE (NEGATIVE); URINE SPECIFIC GRAVITY 1.019
[2019-02-24 20:30] VITALS: BP 161/79
== END 2019-02-24 20:53 | disposition home or self-care (01) ==
LOC: ER 15:19
DX: J44.1 Chronic obstructive pulmonary disease with (acute) exacerbation (principal); R60.9 Edema, unspecified; I10 Essential (primary) hypertension; F17.210 Nicotine dependence, cigarettes, uncomplicated
CPT/HCPCS: 93005; 94640; 99284; 96374; 96375; 36415; 82550; 85025; 80053; 81001; 84484; 83880; 71046; 93010; J1940; J2930; J7620

== ENCOUNTER 2020-08-09 18:36 | Emergency (ER) | payer OTHER, MEDICARE ==
--- NOTE | 2020-08-09 19:04 | ER Document Report ---
ED Neuro Symptoms/Deficit - General Chief Complaint: Altered Mental Status Stated Complaint: SYNCOPE [facility] [[facility]] - Follow up as needed Mode of Arrival: Medic Information source: Emergency Med Personnel Notes: 08/09/20 18:49 - ED Nursing Note by MARVA ORTIZ Num: [id number] : 1950 Patient Age: [age] yo Male brought in via EMS to [facility] Found unresponsive with HR in 30-40's, BGL 160, 18 G R wrist PERRL 4 mm PmHx:previous stroke with left sided deficits Paced Geoscience Specialist 5 mg Verdsed Atropine 1 mg Pt on arrival is obtundend Pacer pads placed on pt. Pt placed on monitor. Pt making loud snoring noises. 95% on 2LNC OPA placed in patient with no gag reflex elicited. Pt is 99% on @LNC skin avulsions left forearm 4 cm, 5th metacarpal 2.5 cm, pointer finger 2.5 cm Erythema to left lateral ribs. 1843: EKG completed with mild ST depression in anterior leads. NSR 1844: Labs obtained. Initialized on 08/09/20 18:49 - END OF NOTE MY NOTES 70-year-old male arrives by EMS after he fell at the [employer] this was witnessed by bystanders who saw him fall from standing p osition to floor. He lacerated his left lateral elbow and his metacarpal skin of his pointer finger and fifth finger. EMS arrived and spoke to his sister. His sister was in the bathroom when he collapsed. Patient was combative and responded to EMS with hand slapping. They had to give him 5 of Versed in order to control his actions. Also he went into a a flutter A. fib and then a bradycardia rhythm and finally a normal sinus rhythm. Upon arrival of patient has 97% on 3 L. He has a trumpet and also patient has 126/72 blood pressure. He was noted by EMS to have a left-sided deficit. He has a prior history of CVA several years ago according to his sister. Patient began to talk and respond by 1900 hrs. He is having full neglect of his left side to include his left arm and left leg. He requests the tube out of his mouth and this was done by Caty RN also wounds of his left hand and left lateral elbow were Coban. There also was noted a skin tear avulsion on the right forearm as well. - Related Data Allergies/Adverse Reactions: No Known Allergies Allergy (Verified 02/24/19 15:52) Past Medical History - General Information source: Emergency Med Personnel - Social History Smoking Status: Unknown if Ever Smoked Cigarette use (# per day): No Chew tobacco use (# tins/day): No Smoking Education Provided: No Frequency of alcohol use: None Family History: Reviewed & Not Pertinent Patient has suicidal ideation: No Patient has homicidal ideation: No - Past Medical History Cardiac Medical History: Reports: Hx Hypertension Pulmonary Medical History: Reports: Hx COPD Renal/ Medical History: Denies: Hx Peritoneal Dialysis Review of Systems - Review of Systems Constitutional: See HPI, Weakness EENT: No symptoms reported Cardiovascular: No symptoms reported Respiratory: No symptoms reported Gastrointestinal: No symptoms reported Genitourinary: No symptoms reported Male Genitourinary: No symptoms reported Musculoskeletal: No symptoms reported Skin: See HPI, Other - Skin avulsions lacerations to left lateral elbow as well as to the left dorsal skin of hand pointer finger metacarpal and fifth finger metacarpal head both of the lateral around 2 and half centimeters in diameter and the left lateral elbow has a laceration around 5 cm with skin avulsion Hematologic/Lymphatic: No symptoms reported Neurological/Psychological: No symptoms reported Physical Exam - Vital signs Vitals: Resp Pulse Ox 19 96 08/09/20 18:41 08/09/20 18:41 Interpretation: Normal - General General appearance: Lethargic - Until 1900 when he began to speak and interpret all communication that was given to him by nurse Byrne and myself. - HEENT Head: Normocephalic, Atraumatic Eyes: Normal Pupils: PERRL - Respiratory Respiratory status: No respiratory distress Chest status: Tender - Left lateral rib pain on palpation Breath sounds: Normal Chest palpation: Normal - Cardiovascular Rhythm: Regular Heart sounds: Normal auscultation Murmur: No - Abdominal Inspection: Normal Distension: No distension Bowel sounds: Normal Tenderness: Nontender Organomegaly: No organomegaly - Rectal Prostate: Other - Deferred - Genitourinary Scrotum: Other - Deferred - Back Back: Normal, Nontender - Extremities General upper extremity: Nontender - Patient denies any pain to his left upper extremities. However he has no use motion and complete neglect of his left upper extremity and left lower extremity., Tender, Normal color, Normal temperature General lower extremity: Tender - Nontender lower extremities. Patient has complete neglect of his left upper arm and left lower extremity, Normal color, Normal temperature. No: Letha's sign - Neurological Neuro grossly intact: Yes Cognition: Confused - Initially confused upon arrival then by 1899 patient was very conversant and communicative. Orientation: Disoriented to place, Disoriented to time, Disoriented to events - Patient was oriented to himself not to situation. [place] Coma Scale Eye Opening: To Voice [place] Coma Scale Motor: Obeys Commands Speech: Normal Cranial nerves: Normal Motor strength normal: RUE, RLE Sensory: Normal - Psychological Associated symptoms: Confused - Skin Skin Temperature: Warm Skin Moisture: Dry Skin Color: Other - Skin tears as per HPI and nursing notes. Course - Vital Signs Vital signs: Temp Pulse Resp BP Pulse Ox 97.9 F 67 18 145/65 H 96 08/09/20 18:45 08/09/20 18:45 08/09/20 19:36 08/09/20 19:36 08/09/20 19:36 - Laboratory Result Diagrams: 08/09/20 18:47 08/09/20 18:47 Laboratory results interpreted by me: 08/09/20 18:47 Sodium 134.8 L Creatinine 1.37 H Est GFR (MDRD) Non-Af 51 L Glucose 144 H Total Protein 5.8 L Albumin 3.4 L - Diagnostic Test Radiology reviewed: Reports reviewed - cxr wnl radiology - EKG Interpretation by Me EKG shows normal: Sinus rhythm Rate: Normal Rhythm: NSR - With a 71 bpm accelerated junctional rhythm and probable inferior infarct old and borderline T wave abnormalities anterior lateral leads. This was read by myself and I agree with the EKG machine evaluation as well. Critical Care Note - Critical Care Note Comments: I spoke with Mariel at transfer center at [facility] at 1930 and she will arrange for a neurologist for acceptance for this patient. Demographic sheet was sent by Lala snyder at [facility]. Also power play for images were transferred by CT staff to [facility] as well. I spoke with BERNADETTE Jones at neurology on tonight through Mariel at the transfer center at 1945 and through the patient's Sister Brielle it appears patient is on some blood thinners but she does not know what kind. His son usually takes care of the patient's medicines. Patient did have a stroke 6 years ago. According to neurological [address] Simms patient had no neurological deficits but according to his sister patient has complete neglect of his left upper arm and uses a shuffle of his left lower extremity. Patient has been accepted for transfer. Helicopter and whether permitting he will be transferred to [facility]. Discharge - Discharge Clinical Impression: Left-sided weakness CVA (cerebral vascular accident) Qualifiers: CVA mechanism: unspecified Qualified Code(s): I63.9 - Cerebral infarction, unspecified Condition: Stable Disposition: [facility] Additional Instructions: Transfer this patient to [facility] via air [facility] [Primary Care [facility]] - Follow up as needed
[2020-08-09 19:10] LABS: PROTHROMBIN TIME 14.4 SEC (11.4-15.4)
--- NOTE | 2020-08-09 19:15 | RADIOLOGY REPORT (SQ) ---
EXAM DESCRIPTION: CHEST SINGLE VIEW IMAGES COMPLETED DATE/TIME: 08/09/2020 7:02 pm REASON FOR STUDY: unresponsive COMPARISON: None. EXAM PARAMETERS: NUMBER OF VIEWS: One view. TECHNIQUE: Single frontal radiographic view of the chest acquired. RADIATION DOSE: NA LIMITATIONS: None. FINDINGS: LUNGS AND PLEURA: No opacities, masses or pneumothorax. No pleural effusion. MEDIASTINUM AND HILAR STRUCTURES: No masses. Contour normal. HEART AND VASCULAR STRUCTURES: Heart normal in size. Normal vasculature. BONES: No acute findings. HARDWARE: None in the chest. OTHER: A well-circumscribed density overlies the medial aspect of the lower left chest wall may repr esent an external device. IMPRESSION: 1. NO ACUTE RADIOGRAPHIC FINDING IN THE CHEST. TECHNICAL DOCUMENTATION: JOB ID: [id number] 2010 [employer]- All Rights Reserved Reading location - IP/workstation name: [email or web address]
[2020-08-09 19:17] LABS: ABSOLUTE EOSINOPHILS # (AUTO) 0.1 10^3/uL (0.0-0.6); ABSOLUTE LYMPHOCYTES (AUTO) 2.5 10^3/uL (0.5-4.7); ABSOLUTE MONOCYTES (AUTO) 0.6 10^3/uL (0.1-1.4); ABSOLUTE NEUT (AUTO) 5.4 10^3/uL (1.7-8.2); BASOPHILS % (AUTO) 0.5 % (0-2); EOSINOPHILS % (AUTO) 1.7 % (0-6); HEMATOCRIT 40.7 % (37.9-51.0); HEMOGLOBIN 14.1 g/dL (13.5-17.0); LYMPHOCYTES % (AUTO) 28.6 % (13-45); MEAN CORPUSCULAR HEMOGLOBIN 29.5 pg (27.0-33.4); MEAN CORPUSCULAR HGB CONC 34.6 g/dL (32.0-36.0); MEAN CORPUSCULAR VOLUME 85 fl (80-97); MONOCYTES % (AUTO) 6.8 % (3-13); PLATELET COUNT 183 10^3/uL (150-450); RED BLOOD COUNT 4.76 10^6/uL (4.35-5.55); RED CELL DISTRIBUTION WIDTH 13.7 % (11.5-14.0); SEGMENTED NEUTROPHILS % (AUTO) 62.4 % (42-78); TOTAL CELLS COUNTED % (AUTO) 100 %; WHITE BLOOD COUNT 8.7 10^3/uL (4.0-10.5)
[2020-08-09 19:35] LABS: ALBUMIN 3.4 g/dL (3.5-5.0); ALCOHOL < 10 mg/dL (NONE DETECTED); ALKALINE PHOSPHATASE 111 U/L (38-126); ANION GAP 11 (5-19); ASPARTATE AMINO TRANSFERASE 26 U/L (17-59); BILIRUBIN,TOTAL 0.5 mg/dL (0.2-1.3); BLOOD UREA NITROGEN 15 mg/dL (7-20); CALCIUM 8.5 mg/dL (8.4-10.2); CARBON DIOXIDE 24 mmol/L (22-30); CHLORIDE 100 mmol/L (98-107); CREATINE KINASE 104 U/L (55-170); GLUCOSE 144 mg/dL (75-110); POTASSIUM 3.7 mmol/L (3.6-5.0); TOTAL PROTEIN 5.8 g/dL (6.3-8.2)
--- NOTE | 2020-08-09 19:58 | RADIOLOGY REPORT (SQ) ---
EXAM DESCRIPTION: CT HEAD WITHOUT IMAGES COMPLETED DATE/TIME: 08/09/2020 7:40 pm REASON FOR STUDY: fall COMPARISON: 02/18/2018 TECHNIQUE: Axial images acquired through the brain without intravenous contrast. Images reviewed wi th bone, brain and subdural windows. Additional sagittal and coronal reconstructions and additional axial sequences were generated. Images stored on PACS. All CT scanners at this facility use dose modulation, iterative reconstruction, and/or weight based d osing when appropriate to reduce radiation dose to as low as reasonably achievable (ALARA). [facility]: Dose Right [facility]: CareDose [facility]: Dose Right [facility]: Teradose 4D [facility]: Smart [employer]Kit RADIATION DOSE: CT Rad equipment meets quality standard of care and radiation dose reduction techniq ues were employed. CTDIvol: 53.2 - 55.2 mGy. DLP: 3251 mGy-cm. mGy. LIMITATIONS: Motion artifact. FINDINGS: VENTRICLES: Prominent ventricles secondary to involutional atrophy. 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 No hemorrhage or mass. No midline shift. No evidence of acute infarction. Areas of low density in the white matter most likely chronic small ves spring ischemic changes. CEREBELLUM: No masses. No hemorrhage. No alteration of density. No evidence for acute infarction. EXTRAAXIAL SPACES: No fluid collections. No masses. ORBITS AND GLOBE: No intra- or extraconal masses. Normal contour of globe without masses. CALVARIUM: No fracture. PARANASAL SINUSES: No fluid or mucosal thickening. SOFT TISSUES: No mass or hematoma. OTHER: No other significant finding. 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 Involutional changes. Chronic microvascul ar ischemia. No acute intracranial imaging findings. EVIDENCE OF ACUTE STROKE: NO. COMMENT: Quality ID # [id number]: Final reports with documentation of one or more dose reduction techniques (e.g., Automated exposure control, adjustment of the mA and/or kV according to patient size, use of iterative reconstruction technique) TECHNICAL DOCUMENTATION: JOB ID: [id number] 2010 [employer]- All Rights Reserved Reading location - IP/workstation name: [email or web address]
--- NOTE | 2020-08-09 20:01 | RADIOLOGY REPORT (SQ) ---
EXAM DESCRIPTION: CT CERVICAL SPINE WITHOUT IMAGES COMPLETED DATE/TIME: 08/09/2020 7:40 pm REASON FOR STUDY: fall COMPARISON: None. TECHNIQUE: Axial images acquired through the cervical spine without intravenous contrast. Images re viewed with lung, soft tissue and bone windows. Reconstructed coronal and sagittal MPR images review ed. Images stored on PACS. All CT scanners at this facility use dose modulation, iterative reconstruction, and/or weight based d osing when appropriate to reduce radiation dose to as low as reasonably achievable (ALARA). [facility]: Dose Right [facility]: CareDose [facility]: Dose Right [facility]: Teradose 4D [facility]: Smart Technologies RADIATION DOSE: CT Rad equipment meets quality standard of care and radiation dose reduction techniq ues were employed. CTDIvol: 25.7 mGy. DLP: 536 mGy-cm. mGy. LIMITATIONS: None. FINDINGS: ALIGNMENT: Anatomic. MINERALIZATION: Normal. VERTEBRAL BODIES: No fractures or dislocation. DISCS: There is marked narrowing of the C5-6 disc space. Prominent anterior osteophytes are present throughout the cervical spine, most prominently at C5-6 and C6-7. FACETS, LATERAL MASSES, POSTERIOR ELEMENTS: Hypertrophic facet changes seen bilaterally. HARDWARE: None in the spine. VISUALIZED RIBS: No fractures. LUNG APICES AND SOFT TISSUES: No significant or acute findings. OTHER: No other significant finding. IMPRESSION: Degenerative disc disease, spondylosis, and facet arthropathy. No acute findings. TECHNICAL DOCUMENTATION: JOB ID: [id number] Quality ID # [id number]: Final reports with documentation of one or more dose reduction techniques (e.g., Au tomated exposure control, adjustment of the mA and/or kV according to patient size, use of iterative reconstruction technique) 2010 [employer]- All Rights Reserved Reading location - IP/workstation name: [email or web address]
[2020-08-09] MEDS ORDERED: NORMAL SALINE 1000 ML 1,000 ML IV ONE (20:07)
[2020-08-09 20:28] VITALS: BP 142/65
--- NOTE | 2020-08-09 20:32 | RADIOLOGY REPORT (SQ) ---
EXAM DESCRIPTION: CT CHEST WITHOUT IV CONTRAST, CT ABDOMEN PELVIS WITHOUT IV CONTRAST COMPLETED DATE/TME: 08/09/2020 19:39 CLINICAL HISTORY: 70 years, Male, fall left rib pain This exam was performed according to our departmental dose-optimization program which includes automated exposure control, adjustment of the mA and/or kVp according to patient size and/or use of iterative reconstruction technique where applicable. FINDINGS: Aorta is mildly calcified. No significant mediastinal, hilar or axillary lymphadenopathy. No pleural or pericardial effusions. Evaluation of the lung parenchyma demonstrates a mild anterior left pneumothorax. Right lung is clear. Left basilar atelectatic changes. No significant pleural effusions. Multiple mildly displaced left lateral rib fractures. Minimally displaced left lateral sixth, seventh, eighth rib fractures are noted. Liver, spleen, pancreas, gallbladder, adrenal glands are within normal limits. No biliary dilatation. Nonobstructive left renal calculi. No hydronephrosis. There is no ureteral or bladder calculus. No dilated loops of bowel to suggest obstruction. Mild amount of stool in the colon. No free fluid or free air. No abdominal or pelvic lymphadenopathy. Abdominal aorta is moderately calcified without aneurysm. Osseous structures demonstrate pelvic bones to be intact. Vertebral body heights and are intact in the thoracic spine. Sternum demonstrates minimally displaced fracture of the manubrium, horizontal fracture in its midportion of the manubrium. There is no significant retrosternal hematoma noted. The visualized portions of the clavicle and the scapula are intact. IMPRESSION: Minimally displaced fracture of the manubrium is noted. Mild anterior left pneumothorax. Multiple left-sided rib fractures. No evidence for solid organ injury or abdominal hemorrhage. Incidental finding of nonobstructive left renal calculus. Critical results finding reporting has been initiated.
[2020-08-09 20:39] LABS: VENOUS BLOOD BASE EXCESS -4.7 mmol/L; VENOUS BLOOD HCO3 22.8 mmol/L (20-32); VENOUS BLOOD PCO2 51.1 mmHg (35-63); VENOUS BLOOD PH 7.27 (7.30-7.42)
== END 2020-08-09 20:29 | disposition short-term general hospital (02) ==
LOC: ER 18:36
DX: I63.9 Cerebral infarction, unspecified (principal); S51.812A Laceration without foreign body of left forearm, initial encounter; S61.217A Laceration without foreign body of left little finger without damage to nail, initial encounter; S61.211A Laceration without foreign body of left index finger without damage to nail, initial encounter; S22.42XA Multiple fractures of ribs, left side, initial encounter for closed fracture; J93.9 Pneumothorax, unspecified; R41.82 Altered mental status, unspecified; R53.1 Weakness; W18.30XA Fall on same level, unspecified, initial encounter; Y92.511 Restaurant or cafe as the place of occurrence of the external cause; I10 Essential (primary) hypertension; J44.9 Chronic obstructive pulmonary disease, unspecified; Z86.73 Personal history of transient ischemic attack (TIA), and cerebral infarction without residual deficits
CPT/HCPCS: 99285; 36415; 80307; 82550; 85025; 85610; 80053; 82803; 71045; 70450; 71250; 72125; 74176; J7030